=== PATIENT | female | born 1940 | race Two or more races ===

== ENCOUNTER → 2016-03-08 | Day surgery (SDC) | payer MEDICARE ==
[~2016-03-08] MED LIST: AMLO5TAB2 PO; FENTANYL PF 100 MCG/2 ML VIAL. IV PRN; IV RINGERS,LACTATED 1000ML 1,000 ML IV SCH; LIDOCAINE 1% 1 ML SYRINGE. ID PRN; LISI1TAB7 PO; MIDAZOLAM HCL 2 MG/2 ML VIAL. IV PRN; OMEP40CA5 PO; PROPOFOL 20 ML IV ONE; RANI150T2 PO
--- NOTE | 2016-03-08 09:00 | PDOC1 ---
HISTORY & PHYSICAL H&P Rosa Mcnamara [id number] 1940 02/27/2016 10:45 AM 02/28 [facility], [facility] OUR PATIENTS COM[facility] FIRST [address] [place] [address]. [phone] Patient: Rosa Mcnamara Date of : 1940 Date: 02/27/2016 10:45 AM Visit Type: Consult This 75 year old female presents for Chest pain and Vomiting. History of Present Illness: 1. Chest pain It is not exertional. Location is epigastric area. The patient describes it as achy, dull and sharp. Context: anxiety. The patient denies any relieving factors. Associated symptoms include chest pain. Additional information: Patient has significant epigastric and chest pain and had been admitted to the [facility] hospital and had extensive workup done and had negative for cardiac etiology and had CT and MRCP was negative.. 2. Vomiting The patient describes it as bilious and clear fluid. Associated symptoms include abdominal pain, bloating, cramping (abdominal) and vomiting. Additional information: Patient has been vomiting and has significant less oral intake.. INTAKE COMMENTS: Intake Comments: Nurse Note: the pt is here today with complaints of chest pain , the pt's daughter states that the pain is always there but there are times that it is worse. When the pain is at its worse she is vomiting. The pt is currently taking Omeprazole and occasionally takes ranitidine that was given by the ER at [facility]. PROBLEM LIST: Problem Description Onset Date Chronic Notes Hypertension 02/27/2016 Y PAST MEDICAL/SURGICAL HISTORY (Detailed) Disease/disorder Onset Date Management Date Comments Cholecystectomy Hypertension Medications (Active): Started Medication Directions Instruction Stopped amlodipine 5 mg tablet take 1 tablet by oral route every day lisinopril 20 mg-hydrochlorothiazide 25 mg tablet take 1 tablet by oral route every day omeprazole 40 mg capsule,delayed release take 1 capsule by oral route every day before a meal ranitidine 150 mg tablet take 1 tablet by oral route 2 times every day Allergies: Ingredient Reaction Medication Name Comment NO KNOWN ALLERGIES REVIEW OF SYSTEMS System Neg/Pos Details Constitutional Negative Chills, fever, malaise and weight loss. ENMT Negative Sore throat. Eyes Negative Double vision. Respiratory Negative Dyspnea and wheezing. Cardio Negative Chest pain and irregular heartbeat/palpitations. GI Positive Abdominal cramping, Abdominal pain, Bloating, Vomiting, See HPI. GI Negative See HPI. Negative Dysuria and hematuria. Endocrine Negative Cold intolerance and heat intolerance. Psych Negative Anxiety. Integumentary Negative Hives and rash. MS Negative Joint pain. Hank/Lymph Negative Easy bleeding and easy bruising. Allergic/Immuno Negative Food allergies. VITAL SIGNS Time BP mm/Hg Pulse /min Resp /min Temp F Ht ft Ht in Ht cm Wt lb Wt kg BMI kg/ m2 BSA m2 O2 Sat% 11:26 AM 130/78 98 97.5 5.0 0.00 152.40 135.40 61.416 26.44 98 MEASURED BY Time Measured by 11:26 AM Nicole Staci PHYSICAL EXAM: Exam Findings Details Constitutional Normal Well developed. Eyes Normal Conjunctiva - Right: Normal, Left: Normal. Sclera - Right: Normal, Left: Normal. Nasopharynx Normal Lips/teeth/gums - Normal. Neck Exam Normal Inspection - Normal. Thyroid gland - Normal. Respiratory Normal Inspection - Normal. Auscultation - Normal. Cardiovascular Normal Regular rate and rhythm. No murmurs, gallops, or rubs. Vascular Normal Pulses - Carotids: Normal, Femoral: Normal, Dorsalis pedis: Normal. Abdomen Normal Inspection - Normal. Anterior palpation - No guarding. No abdominal tenderness. No hepatic enlargement. No splenic enlargement. No hernia. No Ascites. Skin Normal Inspection - Normal. Extremity Normal No edema. Psychiatric Normal Oriented to time, place, person, and situation. Appropriate mood and effect. Assessment/Plan # Detail Type Description 1. Assessment Non-cardiac chest pain (R07.89). Patient Plan Await EGD report 2. Assessment Epigastric pain (R10.13). Patient Plan [place] [facility] [place] Orders Further diagnostic evaluations ordered today include(s) EGD to be performed today. She is to schedule a follow-up visit with Praveen Julio MD upon completion of work-up Electronically signed by: Praveen Julio MD 02/27/2016 01:30 PM Document generated by: Praveen Julio 02/27/2016 01:30 PM Raymond Zuñiga MD, Family Practice; Vidal Genao MD Internal Medicine; Sarah Shell MD, Internal Medicine; Nicky Julio MD Internal Medicine; Praveen Julio MD, Gastroenterology; Kem Hutchinson MD, Rheumatology, S. Bhavik Sarmiento, Physical Medicine/Rehab Antonio Weaver APRN ------ 03/08/2016 Patient seen and examined. No change in history and physical. PRAVEEN JULIO MD Mar 08, 2016 09:00
--- NOTE | 2016-03-08 09:22 | PDOC4 ---
GI OP Report - Dr. Hanna Date/Time DATE: 03/08/16 TIME: 09:15 Attending Physician Wilman Hanna MD Referring Physician Indications Epigastric abdominal pain, Chest pain (non cardiac) Pre-Op See the Anesthesia note for documentation of the administered medications Procedures Upper GI endoscopy Findings - Small hiatus hernia. - Normal stomach. - Normal examined duodenum. - No specimens collected. Plan - Discharge patient to home. - Patient has a contact number available for emergencies. The signs and symptoms of potential delayed complications were discussed with the patient. Return to normal activities tomorrow. Written discharge instructions were provided to the patient. - Resume regular diet. - Continue present medications. - Return to my office in 4 weeks. WILMAN HANNA MD Mar 08, 2016 09:22
[2016-03-08 09:28] VITALS: BP 127/79
== END | disposition home or self-care (01) ==
LOC: SURG 07:54
PROVIDERS: ATTEND Internal Medicine Gastroenterology
DX: K44.9 Diaphragmatic hernia without obstruction or gangrene (principal); I10 Essential (primary) hypertension; Z90.49 Acquired absence of other specified parts of digestive tract
CPT/HCPCS: 43235; J2704

== ENCOUNTER 2019-04-24 07:32 | Emergency (ER) | payer MEDICARE ==
[~2019-04-24] VITALS: Ht 162.6 cm; Wt 59.0 kg
[~2019-04-24 07:32] MED LIST changes: +AMLO5TAB10 PO; -AMLO5TAB2 PO; -FENTANYL PF 100 MCG/2 ML VIAL. IV PRN; -IV RINGERS,LACTATED 1000ML 1,000 ML IV SCH; -LIDOCAINE 1% 1 ML SYRINGE. ID PRN; +LISI1TAB20 PO; -LISI1TAB7 PO; -MIDAZOLAM HCL 2 MG/2 ML VIAL. IV PRN; +OMEP40CA45 PO; -OMEP40CA5 PO; -PROPOFOL 20 ML IV ONE
[2019-04-24] MEDS ORDERED: ACETAMINOPHEN 500 MG TABLET PO ONE (08:15)
[2019-04-24] MEDS ORDERED: IPRATRPIUM/ALBUTEROL 0.5/2.5MG 3 ML NEBU. NEB ONE (08:15)
--- NOTE | 2019-04-24 08:33 | RAD ---
PORTABLE CHEST 1V History: Fever. Comparison: October 08, 2016 chest x-ray. CT July 06, 2009 Findings: Right midlung linear atelectasis or scarring. No consolidation or pleural effusion. Normal heart size. No pneumothorax. Peripherally calcified lesion within the upper mediastinum compatible with thyroid nodule as seen on prior CT, unchanged. Impression: 1. No acute cardiopulmonary process. 2. Right midlung linear atelectasis or scarring. Electronically signed by: Jay Santos DO (04/24/2019 8:30 AM) [id number]
--- NOTE | 2019-04-24 08:39 | PHYS DOC ---
Past Medical History Past Medical History: Hypertension Past Surgical History: Cholecystectomy Smoking Status: Never Smoker Alcohol Use: None Drug Use: None Adult General Chief Complaint Chief Complaint: FLU SYMPTOM HPI HPI Patient is a 78 year old female presents with 1 week of cough shortness of breath wheezing cough with yellow sputum and occasional fever just not doing well. 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 Review of Systems Review of Systems Constitutional: Denies fever or chills [] Eyes: Denies change in visual acuity, redness, or eye pain [] HENT: [] Cardiovascular: No additional information not addressed in HPI [] GI: Denies abdominal pain, nausea, vomiting, bloody stools or diarrhea [] : Denies dysuria or hematuria [] Musculoskeletal: Denies back pain or joint pain [] Integument: Denies rash or skin lesions [] Neurologic: Denies headache, focal weakness or sensory changes [] Endocrine: Denies polyuria or polydipsia [] All other systems were reviewed and found to be within normal limits, except as documented in this note. Current Medications Current Medications Current Medications Medications (Trade) Dose Ordered Sig/Deondre Start Time Stop Time Status Last Admin Dose Admin Acetaminophen (Tylenol) 1,000 mg 1X ONCE 04/24/19 08:15 04/24/19 08:16 DC 04/24/19 08:32 1,000 MG Albuterol/ Ipratropium (Duoneb) 3 ml 1X ONCE 04/24/19 08:15 04/24/19 08:16 DC 04/24/19 08:21 3 ML Potassium Chloride (Klor-Con) 40 meq 1X ONCE 04/24/19 10:30 04/24/19 10:31 Allergies Allergies Allergies Coded Allergies Type Severity Reaction Last Updated Verified No Known Allergies Allergy Unknown 03/08/16 No Physical Exam Physical Exam Constitutional: Well developed, well nourished, no acute distress, non-toxic appearance. [] HENT: Normocephalic, atraumatic, bilateral external ears normal, oropharynx moist, no oral exudates, nose normal. [] Eyes: PERRLA, EOMI, conjunctiva normal, no discharge. [] Neck: Normal range of motion, no tenderness, supple, no stridor. [] Cardiovascular:Heart rate regular rhythm, no murmur [] Lungs & Thorax: Rhonchi and wheezing throughout both lungs Abdomen: Bowel sounds normal, soft, no tenderness, no masses, no pulsatile masses. [] Skin: Warm, dry, no erythema, no rash. [] Back: No tenderness, no CVA tenderness. [] Extremities: No tenderness, no cyanosis, no clubbing, ROM intact, no edema. [] Neurologic: Alert and oriented X 3, normal motor function, normal sensory function, no focal deficits noted. [] Psychologic: Affect normal, judgement normal, mood normal. [] Current Patient Data Vital Signs Vital Signs Date Time Temp Pulse Resp B/P (MAP) Pulse Ox O2 Delivery O2 Flow Rate FiO2 04/24/19 08:22 95 Room Air 04/24/19 07:55 98.5 90 20 182/81 (114) 98.5 Lab Values Laboratory Tests Test 04/24/19 08:20 04/24/19 08:56 White Blood Count 6.6 x10^3/uL (4.0-11.0) Red Blood Count 4.33 x10^6/uL (3.50-5.40) Hemoglobin 12.9 g/dL (12.0-15.5) Hematocrit 37.8 % (36.0-47.0) Mean Corpuscular Volume 87 fL (79-100) Mean Corpuscular Hemoglobin 30 pg (25-35) Mean Corpuscular Hemoglobin Concent 34 g/dL (31-37) Red Cell Distribution Width 13.5 % (11.5-14.5) Platelet Count 208 x10^3/uL (140-400) Neutrophils (%) (Auto) 66 % (31-73) Lymphocytes (%) (Auto) 16 % (24-48) L Monocytes (%) (Auto) 15 % (0-9) H Eosinophils (%) (Auto) 2 % (0-3) Basophils (%) (Auto) 1 % (0-3) Neutrophils # (Auto) 4.4 x10^3/uL (1.8-7.7) Lymphocytes # (Auto) 1.1 x10^3/uL (1.0-4.8) Monocytes # (Auto) 1.0 x10^3/uL (0.0-1.1) Eosinophils # (Auto) 0.1 x10^3/uL (0.0-0.7) Basophils # (Auto) 0.0 x10^3/uL (0.0-0.2) Influenza Type A Antigen Positive (NEGATIVE) Influenza Type B Antigen Negative (NEGATIVE) Sodium Level 140 mmol/L (136-145) Potassium Level 3.0 mmol/L (3.5-5.1) L Chloride Level 100 mmol/L (98-107) Carbon Dioxide Level 31 mmol/L (21-32) Anion Gap 9 (6-14) Blood Urea Nitrogen 7 mg/dL (7-20) Creatinine 0.9 mg/dL (0.6-1.0) Estimated GFR (Cockcroft-Gault) 60.9 BUN/Creatinine Ratio 8 (6-20) Glucose Level 127 mg/dL (70-99) H Lactic Acid Level 2.1 mmol/L (0.4-2.0) H Calcium Level 8.6 mg/dL (8.5-10.1) Total Bilirubin 0.4 mg/dL (0.2-1.0) Aspartate Amino Transferase (AST) 21 U/L (15-37) Alanine Aminotransferase (ALT) 13 U/L (14-59) L Alkaline Phosphatase 65 U/L (46-116) Troponin I Quantitative < 0.017 ng/mL (0.000-0.055) LF-Ygf-I-Type Natriuretic Peptide 567 pg/mL (0-449) H Total Protein 7.2 g/dL (6.4-8.2) Albumin 3.3 g/dL (3.4-5.0) L Albumin/Globulin Ratio 0.8 (1.0-1.7) L Laboratory Tests 04/24/19 08:20 Laboratory Tests 04/24/19 08:56 EKG EKG []EKG shows a normal sinus rhythm rate of 80 no acute ischemic changes noted interpreted by me the time of encounter Radiology/Procedures Radiology/Procedures [] Impressions: Comparison: October 08, 2016 chest x-ray. CT July 06, 2009 Findings: Right midlung linear atelectasis or scarring. No consolidation or pleural effusion. Normal heart size. No pneumothorax. Peripherally calcified lesion within the upper mediastinum compatible with thyroid nodule as seen on prior CT, unchanged. Impression: 1. No acute cardiopulmonary process. 2. Right midlung linear atelectasis or scarring. Electronically signed by: Jay Olson DO (04/24/2019 8:30 AM) [id number] DICTATED and SIGNED BY: JAY OLSON DO DATE: 04/24/19829 Course & Med Decision Making Course & Med Decision Making Pertinent Labs and Imaging studies reviewed. (See chart for details) []78-year-old female with a history of hypertension presenting with respiratory symptoms bronchitis chest x-ray negative checking for fluid checking labs to rule out occult cardiac etiology patient was given DuoNeb's in the emergency room oxygen saturation is 97% on room air. After treatment in the emergency room the patient felt better still had a mild wheezing on examination we ambulated the patient in the emergency room she maintained her oxygen saturation between 93 and 96% and actually was speaking full sentences when I went back in to check on her after the ambulation. I talked with son in detail about the risks and benefits of admission versus a trial of outpatient management. No pneumonia present. Patient says she is feeling better she strongly desires to go home. I think this is reasonable. Potassium was ordered in the emergency room. Prescription for Tamiflu prednisone and albuterol was provided a prescription return precautions were discussed for any change or worsening in symptoms of any kind. Dragon Disclaimer Dragon Disclaimer This electronic medical record was generated, in whole or in part, using a voice recognition dictation system. Departure Departure Impression: Primary Impression: Bronchitis Additional Impression: Influenza Disposition: 01 HOME, SELF-CARE Condition: IMPROVED Referrals: LIBIA ACE D.O. (PCP) Scripts Albuterol Sulfate (Proair Hfa) 8.5 Gm Hfa.aer.ad 2 PUFF IH PRN Q4-6HRS PRN for wheezing for 21 Days, #1 INHALER 0 Refills Prov: SANTOSH WEBSTER MD 04/24/19 Prednisone (PREDNISONE) 50 Mg Tablet 1 TAB PO DAILY, #5 TAB Prov: SANTOSH WEBSTER MD 04/24/19 Oseltamivir Phosphate (TAMIFLU) 75 Mg Capsule 1 CAP PO BID, #10 CAP Prov: SANTOSH WEBSTER MD 04/24/19 Problem Qualifiers SANTOSH WEBSTER MD Apr 24, 2019 08:39
[2019-04-24 08:42] LABS: BASO % 1 % (0-3); EOS # 0.1 x10^3/uL (0.0-0.7); EOS % 2 % (0-3); HEMATOCRIT 37.8 % (36.0-47.0); HEMOGLOBIN 12.9 g/dL (12.0-15.5); LYMPH # 1.1 x10^3/uL (1.0-4.8); LYMPH % 16 % (24-48); MEAN CORPUSCULAR HEMOGLOBIN 30 pg (25-35); MEAN CORPUSCULAR HGB CONC 34 g/dL (31-37); MEAN CORPUSCULAR VOLUME 87 fL (79-100); MONO % 15 % (0-9); NEUT # 4.4 x10^3/uL (1.8-7.7); NEUT % 66 % (31-73); PLATELET COUNT 208 x10^3/uL (140-400); RED BLOOD COUNT 4.33 x10^6/uL (3.50-5.40); RED CELL DISTRIBUTION WIDTH 13.5 % (11.5-14.5); WHITE BLOOD COUNT 6.6 x10^3/uL (4.0-11.0)
[2019-04-24 08:56] LABS: INFLUENZA A PATIENT POSITIVE (NEGATIVE); INFLUENZA B PATIENT NEGATIVE (NEGATIVE)
[2019-04-24 09:15] LABS: CALCIUM 8.6 mg/dL (8.5-10.1); CREATININE 0.9 mg/dL (0.6-1.0); GFR 60.9
[2019-04-24 09:21] LABS: ALBUMIN 3.3 g/dL (3.4-5.0); ALBUMIN/GLOBULIN RATIO 0.8 (1.0-1.7); TOTAL BILIRUBIN 0.4 mg/dL (0.2-1.0); TOTAL PROTEIN 7.2 g/dL (6.4-8.2)
[2019-04-24 09:58] VITALS: BP 113/62
[2019-04-24] MEDS ORDERED: OSEL75CA PO (10:13)
[2019-04-24] MEDS ORDERED: ALBU2.5V8 IH (10:13)
[2019-04-24] MEDS ORDERED: PRED50TA PO (10:13)
[2019-04-24] MEDS ORDERED: POTASSIUM CHLORIDE 20 MEQ TABLET.ER. PO ONE (10:30)
--- NOTE | 2019-04-24 13:00 | EKG ---
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
== END 2019-04-24 10:22 | disposition home or self-care (01) ==
LOC: ER 07:32
DX: J40 Bronchitis, not specified as acute or chronic (principal); J10.1 Influenza due to other identified influenza virus with other respiratory manifestations
CPT/HCPCS: 36415; 71045; 80053; 83605; 83880; 84484; 85025; 87040; 87804; 93005; 94640; 99285; J7620

== ENCOUNTER 2020-02-19 13:20 | Emergency (ER) | payer MEDICARE ==
[~2020-02-19] VITALS: Ht 165.1 cm; Wt 59.0 kg
[~2020-02-19 13:20] MED LIST changes: +ALBU2.5V8 IH; +AMLO-186 PO; -AMLO5TAB10 PO; +OSEL75CA PO; +PRED50TA PO
--- NOTE | 2020-02-19 13:54 | PHYS DOC ---
Past Medical History Past Medical History: Hypertension Past Surgical History: Cholecystectomy Smoking Status: Never Smoker Alcohol Use: None Drug Use: None Adult General HPI HPI Patient is a 79 year old with a known past medical history of hypertension who presents emergency department complaining of new onset of dizziness and near syncope. Patient states that prior to arrival she had new onset of sensation of dizziness and general fatigue. States that she then was WHEN she fell backwards into the couch helped by family. Denies any chest pain, fever, chills, vision changes, nausea or vomiting. Patient does note that 2 weeks ago she was tested positive for COVID-19 Review of Systems Review of Systems Constitutional: Denies fever or chills [] Eyes: Denies change in visual acuity, redness, or eye pain [] HENT: Denies nasal congestion or sore throat [] Respiratory: Denies cough or shortness of breath [] Cardiovascular: No additional information not addressed in HPI [] GI: Denies abdominal pain, nausea, vomiting, bloody stools or diarrhea [] : Denies dysuria or hematuria [] Musculoskeletal: Denies back pain or joint pain [] Integument: Denies rash or skin lesions [] Neurologic: Denies headache, focal weakness or sensory changes [] Endocrine: Denies polyuria or polydipsia [] All other systems were reviewed and found to be within normal limits, except as documented in this note. Allergies Allergies Allergies Coded Allergies Type Severity Reaction Last Updated Verified No Known Allergies Allergy Unknown 03/08/16 No Physical Exam Physical Exam Constitutional: Well developed, well nourished, no acute distress, non-toxic appearance. [] HENT: Normocephalic, atraumatic, bilateral external ears normal, oropharynx moist, no oral exudates, nose normal. [] Eyes: PERRLA, EOMI, conjunctiva normal, no discharge. [] Neck: Normal range of motion, no tenderness, supple, no stridor. [] Cardiovascular:Heart rate regular rhythm, no murmur [] Lungs & Thorax: Bilateral breath sounds clear to auscultation [] Abdomen: Bowel sounds normal, soft, no tenderness, no masses, no pulsatile masses. [] Skin: Warm, dry, no erythema, no rash. [] Back: No tenderness, no CVA tenderness. [] Extremities: No tenderness, no cyanosis, no clubbing, ROM intact, no edema. [] Neurologic: Alert and oriented X 3, normal motor function, normal sensory function, no focal deficits noted. [] Psychologic: Affect normal, judgement normal, mood normal. [] Current Patient Data Vital Signs Vital Signs Date Time Temp Pulse Resp B/P (MAP) Pulse Ox O2 Delivery O2 Flow Rate FiO2 02/19/20 13:30 64 12 116/62 (80) 98 Room Air Lab Values Laboratory Tests Test 02/19/20 13:36 White Blood Count 9.5 x10^3/uL (4.0-11.0) Red Blood Count 4.31 x10^6/uL (3.50-5.40) Hemoglobin 12.6 g/dL (12.0-15.5) Hematocrit 37.7 % (36.0-47.0) Mean Corpuscular Volume 88 fL (79-100) Mean Corpuscular Hemoglobin 29 pg (25-35) Mean Corpuscular Hemoglobin Concent 33 g/dL (31-37) Red Cell Distribution Width 12.7 % (11.5-14.5) Platelet Count 318 x10^3/uL (140-400) Neutrophils (%) (Auto) 72 % (31-73) Lymphocytes (%) (Auto) 17 % (24-48) L Monocytes (%) (Auto) 8 % (0-9) Eosinophils (%) (Auto) 2 % (0-3) Basophils (%) (Auto) 1 % (0-3) Neutrophils # (Auto) 6.8 x10^3/uL (1.8-7.7) Lymphocytes # (Auto) 1.6 x10^3/uL (1.0-4.8) Monocytes # (Auto) 0.7 x10^3/uL (0.0-1.1) Eosinophils # (Auto) 0.2 x10^3/uL (0.0-0.7) Basophils # (Auto) 0.1 x10^3/uL (0.0-0.2) Sodium Level 137 mmol/L (136-145) Potassium Level 3.7 mmol/L (3.5-5.1) Chloride Level 100 mmol/L (98-107) Carbon Dioxide Level 28 mmol/L (21-32) Anion Gap 9 (6-14) Blood Urea Nitrogen 14 mg/dL (7-20) Creatinine 1.3 mg/dL (0.6-1.0) H Estimated GFR (Cockcroft-Gault) 39.7 Glucose Level 139 mg/dL (70-99) H Calcium Level 9.2 mg/dL (8.5-10.1) Magnesium Level 2.0 mg/dL (1.8-2.4) Troponin I Quantitative < 0.017 ng/mL (0.000-0.055) Laboratory Tests 02/19/20 13:36 Laboratory Tests 02/19/20 13:36 EKG EKG [] Radiology/Procedures Radiology/Procedures [] Course & Med Decision Making Course & Med Decision Making Pertinent Labs and Imaging studies reviewed. (See chart for details) Well-appearing 79-year-old female presents emergency department with near syncopal event. Patient has generalized fatigue. No specific etiology at this time, differentials broad. at this time will obtain a generalized work-up to make sure there is no any cardiac or metabolic involvement. 14:55 -patient labs reviewed and unremarkable. EKG without any significant findings. Chest x-ray also without any concerning findings. At this time the patient states her symptoms have completely resolved and she is requesting to be discharged home. Dragon Disclaimer Dragon Disclaimer This electronic medical record was generated, in whole or in part, using a voice recognition dictation system. Departure Departure Impression: Primary Impression: Dehydration Disposition: 01 DC HOME SELF CARE/HOMELESS Condition: IMPROVED Referrals: LIBIA ACE D.O. (PCP) Patient Instructions: Dehydration, Elderly, Near-Syncope, [id number] Additional Instructions: Please return to the emergency department if there is any sudden worsening of your symptoms, fever and chills or changes in your vision PAUL TOLEDO MD Feb 19, 2020 13:54
[2020-02-19 13:56] LABS: BASO # 0.1 x10^3/uL (0.0-0.2); BASO % 1 % (0-3); EOS # 0.2 x10^3/uL (0.0-0.7); EOS % 2 % (0-3); HEMATOCRIT 37.7 % (36.0-47.0); HEMOGLOBIN 12.6 g/dL (12.0-15.5); LYMPH # 1.6 x10^3/uL (1.0-4.8); LYMPH % 17 % (24-48); MEAN CORPUSCULAR HEMOGLOBIN 29 pg (25-35); MEAN CORPUSCULAR HGB CONC 33 g/dL (31-37); MEAN CORPUSCULAR VOLUME 88 fL (79-100); MONO # 0.7 x10^3/uL (0.0-1.1); MONO % 8 % (0-9); NEUT # 6.8 x10^3/uL (1.8-7.7); NEUT % 72 % (31-73); PLATELET COUNT 318 x10^3/uL (140-400); RED BLOOD COUNT 4.31 x10^6/uL (3.50-5.40); RED CELL DISTRIBUTION WIDTH 12.7 % (11.5-14.5); WHITE BLOOD COUNT 9.5 x10^3/uL (4.0-11.0)
--- NOTE | 2020-02-19 14:05 | EKG ---
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
--- NOTE | 2020-02-19 14:05 | RAD ---
AP chest. HISTORY: Syncope, Covid-19 positive AP view was taken of the chest. There is calcification at the level the thyroid unchanged from old st udies. Lungs are free of infiltrates. There is an epicardial fat pad along the left heart border. The re is no definite effusion. IMPRESSION: 1. No acute infiltrates. Electronically signed by: Hayden Whitaker MD (02/19/2020 2:03 PM) [facility]
[2020-02-19 14:30] LABS: CALCIUM 9.2 mg/dL (8.5-10.1); CREATININE 1.3 mg/dL (0.6-1.0); GFR 39.7; POTASSIUM 3.7 mmol/L (3.5-5.1)
[2020-02-19 15:30] VITALS: BP 114/63
== END 2020-02-19 16:05 | disposition home or self-care (01) ==
LOC: ER 13:20
DX: E86.0 Dehydration (principal); R55 Syncope and collapse; R53.83 Other fatigue; I10 Essential (primary) hypertension
CPT/HCPCS: 36415; 71045; 80048; 83735; 84484; 85025; 93005; 99285-25